=== PATIENT | female | born 1975 | race Caucasian/White ===

== ENCOUNTER → 2017-03-19 | Outpatient (CLI) | payer BC ==
[~2017-03-19] MED LIST: ASCO100061 PO; CHOL100027 PO; CLC100X PO; DOCO1CAP6 PO; MISCCAP80 PO; MTR600X PO; OREGCAP PO; PRENTAB26 PO; PRT/20 PO; [UNRECOGNIZED DRUG - CODE] PO
== END | disposition home or self-care (01) ==
LOC: C.LAB1850 13:48
PROVIDERS: ATTEND Internal Medicine
DX: R12 Heartburn (principal)

== ENCOUNTER → 2017-03-26 | Outpatient (CLI) | payer BC ==
--- NOTE | 2017-03-26 10:12 | DIAGNOSTIC IMAGING REPORT ---
(BARIUM SWALLOW) ESOPHAGUS CLINICAL HISTORY: R12 [id number] GxzwvcoocV41.1 Sensation of lump in throatRA COMPARISON STUDY: None FLUOROSCOPY TIME: 1.2 minutes. NUMBER OF FLUOROSCOPIC IMAGES: 24 FINDINGS: The patient swallowed effervescent barium in granular without difficulty. Rapid sequence swallows in the AP and lateral projections are unremarkable. No esophageal masses or ulcerations are visualized. No esophageal strictures are evident. No reflux was evident. The patient swallowed one half inch barium tablet without difficulty. IMPRESSION: Normal study Electronically signed by: Luis Duggan M.D. 03/26/2017 10:11 AM Dictated Date/Time: 03/26/2017 10:10 AM
== END | disposition home or self-care (01) ==
LOC: C.RAD 09:30
PROVIDERS: ATTEND Internal Medicine
DX: R22.1 Localized swelling, mass and lump, neck (principal); R12 Heartburn; R13.10 Dysphagia, unspecified

== ENCOUNTER → 2017-04-16 | Outpatient (CLI) | payer BC | END | disposition home or self-care (01) | LOC: C.LAB 09:16 | PROVIDERS: ATTEND Nutritionist | DX: R53.83 Other fatigue (principal) ==

== ENCOUNTER 2017-04-20 08:38 | Emergency (ER) | payer BC ==
[~2017-04-20] VITALS: Ht 165.1 cm; Wt 72.2 kg
[~2017-04-20 08:38] MED LIST changes: -ASCO100061 PO; -CHOL100027 PO; -MISCCAP80 PO; -OREGCAP PO; -PRT/20 PO; -[UNRECOGNIZED DRUG - CODE] PO
[2017-04-20 08:42] VITALS: TEMP 37; Ht 165.1 cm; Wt 72.2 kg
[2017-04-20] MEDS ORDERED: GI COCKTAIL PO STA (09:06)
[2017-04-20] MEDS ORDERED: FAMOTIDINE 20 MG TAB PO STA (09:06)
[2017-04-20] MEDS ORDERED: SUCRALFATE 1 GM TAB PO STA (09:06)
[2017-04-20 09:16] VITALS: O2SAT 97
[2017-04-20] MEDS ORDERED: ALUMINUM/MAGNESIUM SUSP 30 ML UDC ONE (09:23)
[2017-04-20] MEDS ORDERED: LIDOCAINE HCL 2% VISC SOLN 20 ML UDC ONE (09:23)
[2017-04-20 09:39] LABS: BASO % 0.7 %; BASO ABS # 0.05 K/uL (0-0.2); COMPLETE YES; EOS % 0.8 %; HEMATOCRIT 41.1 % (37-47); IG% 0.1 %; LYMPH % 22.6 %; LYMPH ABS # 1.71 K/uL (1.2-3.4); MEAN CELL VOLUME 89.2 fL (80-100); MEAN CORPUSCULAR HEMOGLOBIN 30.2 pg (25-34); MEAN CORPUSCULAR HGB CONC 33.8 g/dl (32-36); NEUT % 70.8 %; PLATELET COUNT 283 K/uL (130-400); RED BLOOD COUNT 4.61 M/uL (4.2-5.4); WHITE BLOOD COUNT 7.58 K/uL (4.8-10.8)
--- NOTE | 2017-04-20 09:50 | EMERGENCY ROOM VISIT NOTE ---
History Report prepared by Fabian: Kirsten Gonzalez Under the Supervision of: Dr. Gabino Marin M.D. First contact with patient: 08:48 Chief Complaint: BACK PAIN Stated Complaint: BURNING IN MID TO UPPER BACK History of Present Illness The patient is a 41 year old female who presents to the Emergency Room with complaints of waxing and waning upper back pain beginning early this morning. She was diaphoretic last night and woke up this morning with burning pain in her mid upper back. Her pain is alleviated with standing up and worsened when she lays flat. She rates her current pain as a 4/10 in severity. The patient has similar pain in July. She followed up with her PCP who thought it might be related to her gallbladder. Again in January she had similar pain and pain in her throat. She followed up with her PCP again who diagnosed her with reflux and placed her on medications. The patient had an unremarkable ECG at that time. She has been taking the reflux medication as prescribed, but states that it is not fully alleviating her symptoms. 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 She had a barium swallow done a few weeks ago that was normal. The patient denies chance of , rashes, and recent tick bites. Source of History: patient Onset: this morning Position: back (upper) Symptom Intensity: 4/10 Quality: burning Timing: waxes/wanes Modifying Factors (Worsening): other (laying flat) Modifying Factors (Relieving): other (standing up) Associated Symptoms: No rash Review of Systems See HPI for pertinent positives & negatives. A total of 10 systems reviewed and were otherwise negative. Past Medical & Surgical Medical Problems: (1) delivery delivered (2) Hypertension (3) Uterine scar from previous delivery affecting Family History Cancer Gallbladder disease Hypertension Kidney disease Kidney stones Social History Smoking Status: Never Smoker Smokeless Tobacco Use: No Alcohol Use: occasionally Marital Status: Housing Status: lives with family Occupation Status: employed Current/Historical Medications Scheduled Ascorbic Acid (Ascorbic Acid), 1 TAB PO DAILY Cholecalciferol (Vitamin D 1000 Unit), 1,000 INTER.UNIT PO DAILY Glutamine (l-Glutamine), 1 DOSE PO UD Oregano (Oil Of Oregano), 1 CAP PO DAILY Pantoprazole (Protonix), 20 MG PO DAILY Probiotic Product (Probiotic), 1 CAP PO DAILY Allergies Coded Allergies: NO KNOWN DRUG ALLERGIES (Verified Allergy, Unknown, NKDA, 04/20/17) Physical Exam Vital Signs Date Time Temp Pulse Resp B/P (MAP) Pulse Ox O2 Delivery O2 Flow Rate FiO2 04/20/17 10:50 73 18 135/90 99 04/20/17 09:50 67 22 120/84 99 Room Air 04/20/17 09:16 82 04/20/17 09:16 97 Room Air 04/20/17 08:42 37.0 76 20 140/83 100 Room Air Physical Exam GENERAL: Patient is a healthy-appearing well-nourished 41 year old female. HEAD: Normocephalic atraumatic EYES: Ocular movements intact pupils equal and react to light OROPHARYNX mucous membranes are moist no exudates present no erythema or edema present NECK: Supple no nuchal rigidity CHEST: Good equal expansion LUNGS: Clear and equal to auscultation CARDIAC: Normal S1 and S2 ABDOMEN: Soft nontender no guarding BACK: No CVA tenderness EXTREMITIES: No pain upon palpation normal muscle strength in all groups no clubbing cyanosis or edema NEURO: Patient is following commands and answering questions appropriately. Alert and oriented x3 Cranial Nerves 2-12 grossly intact Medical Decision & Procedures ER Provider Diagnostic Interpretation: Radiology results as stated below per my review and radiologist interpretation: Biliary ultrasound CLINICAL HISTORY: Pt c/o RU abd pain COMPARISON STUDY: No previous studies for comparison. FINDINGS: The liver appears sonographically normal. The pancreas appears sonographically normal. Multiple gallstones are visualized. There is no gallbladder wall thickening. There is no pericholecystic fluid. There is no ductal dilatation. The common bile duct measures 5 mm. There is no right-sided hydronephrosis. IMPRESSION: Cholelithiasis. Otherwise normal biliary ultrasound. No evidence of ductal dilatation. Electronically signed by: Luis Duggan M.D. 04/20/2017 10:17 AM Dictated Date/Time: 04/20/2017 10:17 AM Laboratory Results 04/20/17 09:20 Red Blood Count 4.61, Mean Corpuscular Volume 89.2, Mean Corpuscular Hemoglobin 30.2, Mean Corpuscular Hemoglobin Concent 33.8, Mean Platelet Volume 10.0, Neutrophils (%) (Auto) 70.8, Lymphocytes (%) (Auto) 22.6, Monocytes (%) (Auto) 5.0, Eosinophils (%) (Auto) 0.8, Basophils (%) (Auto) 0.7, Neutrophils # (Auto) 5.37, Lymphocytes # (Auto) 1.71, Monocytes # (Auto) 0.38, Eosinophils # (Auto) 0.06, Basophils # (Auto) 0.05 04/20/17 09:20 Test 04/20/17 09:20 White Blood Count 7.58 K/uL (4.8-10.8) Red Blood Count 4.61 M/uL (4.2-5.4) Hemoglobin 13.9 g/dL (12.0-16.0) Hematocrit 41.1 % (37-47) Mean Corpuscular Volume 89.2 fL (80-100) Mean Corpuscular Hemoglobin 30.2 pg (25-34) Mean Corpuscular Hemoglobin Concent 33.8 g/dl (32-36) Platelet Count 283 K/uL (130-400) Mean Platelet Volume 10.0 fL (7.4-10.4) Neutrophils (%) (Auto) 70.8 % Lymphocytes (%) (Auto) 22.6 % Monocytes (%) (Auto) 5.0 % Eosinophils (%) (Auto) 0.8 % Basophils (%) (Auto) 0.7 % Neutrophils # (Auto) 5.37 K/uL (1.4-6.5) Lymphocytes # (Auto) 1.71 K/uL (1.2-3.4) Monocytes # (Auto) 0.38 K/uL (0.11-0.59) Eosinophils # (Auto) 0.06 K/uL (0-0.5) Basophils # (Auto) 0.05 K/uL (0-0.2) RDW Standard Deviation 40.2 fL (36.4-46.3) RDW Coefficient of Variation 12.4 % (11.5-14.5) Immature Granulocyte % (Auto) 0.1 % Immature Granulocyte # (Auto) 0.01 K/uL (0.00-0.02) Anion Gap 6.0 mmol/L (3-11) Est Creatinine Clear Calc Drug Dose 85.6 ml/min Estimated GFR () 96.6 Estimated GFR (Non- 83.3 BUN/Creatinine Ratio 10.8 (10-20) Calcium Level 9.3 mg/dl (8.5-10.1) Total Bilirubin 0.7 mg/dl (0.2-1) Direct Bilirubin 0.2 mg/dl (0-0.2) Aspartate Amino Transf (AST/SGOT) 16 U/L (15-37) Alanine Aminotransferase (ALT/SGPT) 19 U/L (12-78) Alkaline Phosphatase 82 U/L (45-117) Total Creatine Kinase 82 U/L (26-192) Creatine Kinase MB 0.6 ng/ml (0.5-3.6) Creatine Kinase MB Ratio 0.7 (0-3.0) Troponin I < 0.015 ng/ml (0-0.045) Total Protein 8.1 gm/dl (6.4-8.2) Albumin 4.2 gm/dl (3.4-5.0) Lipase 125 U/L (73-393) Lyme Disease IgG Antibody NEG (NEG) Lyme Disease IgM Antibody NEG (NEG) Labs reviewed by ED physician. Medications Administered Medications (Trade) Dose Ordered Sig/Arias Route Start Time Stop Time Status Last Admin Dose Admin Famotidine (Pepcid Tab) 20 mg NOW STAT PO 04/20/17 09:06 04/20/17 09:09 DC 04/20/17 09:26 20 MG Sucralfate (Carafate Tab) 1 gm NOW STAT PO 04/20/17 09:06 04/20/17 09:09 DC 04/20/17 09:26 1 GM Al Hydroxide/Mg Hydroxide (Maalox Susp) 30 ml STK-MED ONCE .ROUTE 04/20/17 09:23 04/20/17 09:24 DC 04/20/17 09:26 30 ML Lidocaine HCl (Viscous Lidocaine 2% Soln) 20 ml STK-MED ONCE .ROUTE 04/20/17 09:23 04/20/17 09:24 DC 04/20/17 09:26 20 ML ECG Indication: back/shoulder pain Rate (beats per minute): 69 Rhythm: normal sinus Findings: no acute ischemic change, no ectopy ED Course 0848: Past medical records reviewed. The patient was evaluated in room A12B. A complete history and physical examination was performed. 0906: Sucralfate 1 gm PO, Pepcid 20 mg PO, GI cocktail 24 ml PO 1037: I reassessed the patient at this time. She is feeling better and resting comfortably. I discussed the results and treatment plan with the patient. I answered all pertaining questions that she had. She expressed understanding and verbalized agreement. The patient will be discharged home. Medical Decision Differential diagnosis: Etiologies such as appendicitis, diverticulitis, PUD, biliary pathology, UTI, pancreatitis, obstruction, mesenteric ischemia, aortic pathology, infections, inflammatory bowel disease, renal colic, as well as others were entertained. This is a 41-year-old female who presents emergency department complaining of abdominal pain that radiates into her back. The patient is at this point nontender and using shared medical decision-making the decision was made to ultrasound the patient's gallbladder. I will that she is afebrile here has a normal CBC normal renal profile normal liver profile normal lipase. The patient 's ultrasounds concerning for cholelithiasis. She has no evidence of cholecystitis however I suspect that this is been causing her pain intermittent pain. I strongly recommended that the patient follow-up with surgery. Patient was in agreement with the treatment plan. Medication Reconcilliation Current Medication List: was personally reviewed by me Blood Pressure Screening Patient's blood pressure: Normal blood pressure Impression Primary Impression: Cholelithiasis Scribe Attestation The scribe's documentation has been prepared under my direction and personally reviewed by me in its entirety. I confirm that the note above accurately reflects all work, treatment, procedures, and medical decision making performed by me. Departure Information Dispostion Home / Self-Care Referrals RV. Mitchell MD (PCP) Kit Osorio M.D., Christopher W., MD Forms HOME CARE DOCUMENTATION FORM, IMPORTANT VISIT INFORMATION Patient Instructions Diet Clear Liquid Dc, ED Gallstone W Biliary Colic, Gallstones, My [facility] Additional Instructions Follow up with DR Sanches's office (Cardio) Follow up with DR Osorio's office (Gallbladder) Clear liquid diet next 48 hours Take Maalox 5 ml Before every meal and at bedtime Culture results are usually available in approx 48 hours You have been examined and treated today on an emergency basis only. This is not a substitute for, or an effort to provide, complete comprehensive medical care. It is impossible to recognize and treat all injuries or illnesses in a single emergency department visit. It is therefore important that you follow up closely with Dr Lunsford. Call as soon as possible for an appointment. Thank you for your time and consideration. I look forward to speaking with you again soon. Please don't hesitate to call us if you have any questions. Problem Qualifiers Primary Impression: Cholelithiasis Cholelithiasis location: gallbladder Cholecystitis presence: without cholecystitis Biliary obstruction: without biliary obstruction Qualified Codes: K80.20 - Calculus of gallbladder without cholecystitis without obstruction
[2017-04-20 09:57] LABS: ALT/SGPT 19 U/L (12-78); BLOOD UREA NITROGEN 9 mg/dl (7-18); BUN/CREATININE RATIO 10.8 (10-20); CALCIUM 9.3 mg/dl (8.5-10.1); CARBON DIOXIDE 27 mmol/L (21-32); CHLORIDE 107 mmol/L (98-107); CREATININE 0.87 mg/dl (0.60-1.20); GLUCOSE 76 mg/dl (70-99); POTASSIUM 3.9 mmol/L (3.5-5.1); SODIUM 140 mmol/L (136-145)
[2017-04-20 10:02] LABS: ALKALINE PHOSPHATASE 82 U/L (45-117); AST/SGOT 16 U/L (15-37); CKMB/CK RATIO 0.7 (0-3.0)
[2017-04-20] MEDS ORDERED: CHOL100027 PO (10:19)
--- NOTE | 2017-04-20 10:19 | DIAGNOSTIC IMAGING REPORT ---
Biliary ultrasound CLINICAL HISTORY: Pt c/o RU abd pain COMPARISON STUDY: No previous studies for comparison. FINDINGS: The liver appears sonographically normal. The pancreas appears sonographically normal. Multiple gallstones are visualized. There is no gallbladder wall thickening. There is no pericholecystic fluid. There is no ductal dilatation. The common bile duct measures 5 mm. There is no right-sided hydronephrosis. IMPRESSION: Cholelithiasis. Otherwise normal biliary ultrasound. No evidence of ductal dilatation. Electronically signed by: Luis Duggan M.D. 04/20/2017 10:17 AM Dictated Date/Time: 04/20/2017 10:17 AM
[2017-04-20] MEDS ORDERED: OREGCAP PO (10:31)
[2017-04-20] MEDS ORDERED: PRT/20 PO (10:31)
[2017-04-20] MEDS ORDERED: [UNRECOGNIZED DRUG - CODE] PO (10:31)
[2017-04-20] MEDS ORDERED: MISCCAP80 PO (10:31)
[2017-04-20] MEDS ORDERED: ASCO100061 PO (10:31)
[2017-04-20 10:43] LABS: LYME DISEASE AB IGG NEG (NEG); LYME DISEASE AB IGM NEG (NEG)
[2017-04-20 10:50] VITALS: BP 135/90; PULSE 73; O2SAT 99
== END 2017-04-20 10:51 | disposition home or self-care (01) ==
LOC: C.EDB 08:39 → C.EDA 10:51
DX: K80.20 Calculus of gallbladder without cholecystitis without obstruction (principal); I10 Essential (primary) hypertension; Z82.49 Family history of ischemic heart disease and other diseases of the circulatory system; Z84.1 Family history of disorders of kidney and ureter

== ENCOUNTER 2023-09-29 18:26 | Observation (INO) ==
[2023-09-29] MEDS: SODIUM CHLORIDE 0.9% 1,000 ML IV STA (18:53)
[2023-09-29] MEDS: MoRPHine SULFATE 4 MG/ML 1 ML CARP\\VIAL IV PRN (18:54)
[2023-09-29] MEDS: ONDANSETRON INJ 2 MG/ML 2 ML VIAL IV STA (18:54)
--- NOTE | 2023-09-29 18:55 | Emergency Department Note ---
Impression & Plan Acute cholecystitis, Abdominal pain ED Provider Note NAME: MIGDALIA DE LEÓN AGE: 47 SEX: F : 1975 ARRIVES VIA: Walk-In INFORMANT: Patient, ED PROVIDER(S): Robert Dixon DO CHIEF COMPLAINT: Abdominal pain HPI: The patient is a 47-year-old female who presented to the emergency department for an evaluation of abdominal pain. The patient started having abdominal pain last evening around 10 PM. She started noticing abdominal distention. She did have some right upper quadrant pain as well as left lower quadrant pain. She calls it a crampy intermittent pain but she does have a constant pressure in her abdomen. She denies having any fever or vomiting. She denies having any rectal bleeding. She called her family doctor and the on-call physician told her to come the emergency department for possible appendicitis. ROS: See above HPI for pertinent positives & negatives. A total of 10 systems reviewed and were otherwise negative. PAST MEDICAL HISTORY: See Below PAST SURGICAL HISTORY: See Below FAMILY HISTORY: See Below SOCIAL HISTORY: See Below HOME MEDICATIONS: See Below ALLERGIES: See Below VITALS: See Below PHYSICAL EXAMINATION: GENERAL: Patient is awake alert in no acute distress patient is resting comfortably and showing no signs of anxiety EYES: The conjunctivae are clear. The pupils are round and reactive. EARS, NOSE, MOUTH AND THROAT: The nose is without any evidence of any deformity. NECK: The neck is nontender and supple. RESPIRATORY: Normal respiratory effort is noted there is no evidence of wheezing rhonchi or rales CARDIOVASCULAR: Regular rate and rhythm noted there no murmurs rubs or gallops normal S1 normal S2. GASTROINTESTINAL: The abdomen is distended. There is no specific guarding or rigidity. Diffuse tenderness was noted to palpation MUSCULOSKELETAL/EXTREMITIES: There is no evidence of gross deformity full range of motion is noted in the hips and shoulders. SKIN: There is no obvious evidence of any rash. There are no petechiae, pallor or cyanosis noted. NEUROLOGIC: Patient is awake alert and oriented x3 MEDICAL DECISION MAKING: The patient is a 47-year-old female who presented to the emergency department for an evaluation of abdominal pain. The patient had initially diffuse abdominal pain. The patient was treated with IV fluids and IV pain medication in the emergency department. The patient was also treated with IV antibiotics after CAT scan appear to be consistent with cholecystitis. I discussed the patient's laboratory and radiographic studies with her. She was significantly improved on reevaluation. I discussed her condition with the on-call general surgeon. The patient was evaluated by surgery in the emergency department. At their request I discussed the case with the [facility] Hospitalist. Triage Nursing notes reviewed. Prior medical records reviewed Vital Signs: reviewed and remarkable for elevated blood pressure. Differential diagnosis: Etiologies such as appendicitis, diverticulitis, obstruction, inflammatory bowel disease, renal colic, PUD, biliary pathology, pancreatitis, mesenteric ischemia, aortic pathology, infections, genitourinary, UTI, perforated viscus, as well as others were entertained. ER treatment provided: See below Diagnostics interpreted by me: ECG: EKG was obtained in the emergency department. My interpretation is sinus tachycardia [address] segment abnormalities were noted. This was compared to a tracing from April 20, 2017. There is an increase in rate otherwise no specific changes were noted. Cardiac Monitoring: An order was placed for continuous cardiac monitoring. The monitor shows a rate of 99 bpm with sinus rhythm. Laboratory studies: As stated above and show below. Imaging studies: See below. Radiographic imaging was reviewed by myself Consultation(s): I discussed this case with Dr. Brooks who is on-call for general surgery. I discussed this case with Dr. Salomon who is on-call for the [facility] hospitalist group. Past Med/Surg History Medical History Cholelithiasis delivery delivered Surgical History H/O oral surgery Family History Father Prostate cancer Grandfather (Paternal) Prostate cancer Other Breast cancer Denies family history of Ovarian cancer Myocardial infarction Colorectal cancer Social History Smoking Status: Never smoker Second Hand Exposure: No; Hx Alcohol Use: Yes Hx Substance Use: No Preferred Language: Greek Visual Impairment: No Limitations Hearing Ability: Normal marital status: Current Living Situation: Family current occupational status: employed Feels Safe at Home: Yes Childhood Exposure to Second-Hand Smoke: No Seatbelt Use: always Sunscreen Use: Yes Allergies Allergies Allergy/AdvReac Type Severity Reaction Status Date / Time No Known Drug Allergies Allergy Unknown NKDA Verified 09/27/22 14:07 Home Meds Home Medications Medication Instructions Recorded Confirmed ascorbate calcium (vitamin C) PO 09/27/22 09/27/22 zinc sulfate [Zinc-220] PO 09/27/22 09/27/22 Results & Data (ED) Vital Signs Vital Signs - 24 hr 09/29/23 18:26 09/29/23 18:53 09/29/23 18:53 Temperature 36.5 C Temperature Source Temporal Artery Scan Pulse Rate 103 H 122 H Respiratory Rate 18 Blood Pressure 149/84 H Blood Pressure Mean 105 Pulse Oximetry 100 Oxygen Delivery Method Room Air Sepsis Recent Fever Within 48 Hours No Sepsis New/Unexplained Change in Mental Status N/A Sepsis Action Taken by Nursing No Action Required 09/29/23 19:17 09/29/23 20:30 Temperature Temperature Source Pulse Rate 90 87 Respiratory Rate 18 24 Blood Pressure 140/78 145/81 H Blood Pressure Mean 98 102 Pulse Oximetry 99 99 Oxygen Delivery Method Room Air Sepsis Recent Fever Within 48 Hours Sepsis New/Unexplained Change in Mental Status Sepsis Action Taken by Half-Way Medications Current Medication List: was personally reviewed by me Laboratory Data Attestation: I reviewed the patient's lab results. 09/29/23 18:55 09/29/23 18:55 Lab Results 09/29/23 09/29/23 09/29/23 Range/Units 18:50 18:55 19:00 WBC 13.53 H (4.8-10.8) K/ul RBC 4.65 (4.20-5.40) M/uL Hgb 13.9 (12.0-16.0) g/dl POC Hgb 14.6 (12.0-16.0) g/dl Hct 40.6 (37.0-47.0) % POC Hct 43 (37-47) % MCV 87.3 (80.0-100.0) fL MCH 29.9 (25.0-34.0) pg MCHC 34.2 (32.0-36.0) g/dL RDW Std Deviation 39.6 (36.4-46.3) fL RDW Coeff of Westley 12.5 (11.5-14.5) % Plt Count 314 (130-400) K/uL MPV 10.1 (9.4-12.4) fL Immature Gran % (Auto) 0.4 % Neut % (Auto) 74.2 % Lymph % (Auto) 18.6 % Woodward % (Auto) 5.9 % Eos % (Auto) 0.5 % Baso % (Auto) 0.4 % Neut # (Auto) 10.04 H (1.40-6.50) K/uL Lymph # (Auto) 2.52 (1.20-3.40) K/uL Woodward # (Auto) 0.80 H (0.11-0.59) K/uL Eos # (Auto) 0.07 (0.00-0.50) K/uL Baso # (Auto) 0.05 (0.00-0.20) K/uL Immature Gran # (Auto) 0.05 (0.01-0.20) K/uL POC Sodium 136 (135-144) mmol/L Sodium 136 (136-145) mmol/L POC Potassium 3.7 (3.3-5.0) mmol/L Potassium 3.7 (3.5-5.1) mmol/L POC Chloride 100 L (101-112) mmol/L Chloride 100 (98-107) mmol/L Carbon Dioxide 24 (21-32) mmol/L POC Total CO2 25 (24-31) mmol/L Anion Gap 12 H (3-11) POC Anion Gap 16.0 (16-25) mmol/L POC BUN < 3 L (7-18) mg/dl BUN 5 L (6-23) mg/dl Creatinine 0.71 (0.6-1.2) mg/dl POC Creatinine 0.7 (0.6-1.3) mg/dl Est Cr Clr Drug Dosing 101.8 ml/min Est GFR ( Amer) 118.4 ml/min Est GFR (Non-Af Amer) 102.1 ml/min BUN/Creatinine Ratio 7.0 L (10-20) Glucose 105 H (70-99(Fasting)) mg/dl POC Glucose (other) 105 H (70-99) mg/dl Calcium 10.1 (8.6-10.3) mg/dl POC Ioniz Calcium Aurelia 1.13 (1.12-1.32) mmol/l Total Bilirubin 0.8 (0.2-1.0) mg/dl AST 20 (13-39) U/L ALT 18 (7-52) U/L Alkaline Phosphatase 74 (34-104) U/L Troponin I High Sens 2.8 (0-14) pg/ml Total Protein 8.0 (6.0-8.3) gm/dl Albumin 5.0 (3.4-5.0) gm/dl Globulin 3.0 (2.5-4.0) gm/dl Albumin/Globulin Ratio 1.7 (0.9-2) Lipase 10 L (11-82) U/L HCG, Qual Negative (Negative) Urine Color Yellow Urine Appearance Clear (Clear) Urine pH 5.0 (4.5-7.5) Ur Specific Holt 1.021 (1.000-1.030) Urine Protein Trace H (Negative) Urine Glucose (UA) Negative (Negative) Urine Ketones 4+ H (Negative) Urine Blood Trace H (Negative) Urine Nitrite Negative (Negative) Urine Bilirubin Negative (Negative) Urine Urobilinogen Negative (Negative) Ur Leukocyte Esterase Negative (Negative) Urine WBC (Auto) 1-5 (0-5) /hpf Urine RBC (Auto) 5-10 H (0-4) /hpf U Hyaline Cast (Auto) 1-5 (0-5) /lpf U Epithel Cells (Auto) 20-30 H (0-5) /lpf Urine Bacteria (Auto) Negative (Negative) Administered Medications Morphine Sulfate (Morphine Sulfate 4 Mg/Ml 1 Ml Carp\Vial) 4 mg IV Q15M PRN PRN Reason: Pain Stop: 10/13/23 18:43 Last Admin: 09/29/23 18:54 Dose: 4 mg Documented By: ADITYA Discontinued Medications Sodium Chloride (Nss) 1,000 mls @ 999 mls/hr IV .Q1H1M STA Stop: 09/29/23 19:44 Last Infusion: 09/29/23 20:10 Dose: Infused Documented By: Admin: 09/29/23 18:53 Dose: 999 mls/hr Documented By: ADITYA Piperacillin Sod/Tazobactam Sod (Zosyn) 4.5 gm in 100 mls @ 200 mls/hr IV NOW ONE Stop: 09/29/23 19:51 Last Infusion: 09/29/23 20:10 Dose: Infused Documented By: Admin: 09/29/23 19:31 Dose: 200 mls/hr Documented By: NETO Ioversol (Optiray 320 100ml) 93 ml IV ONCE ONE Stop: 09/29/23 19:12 Last Admin: 09/29/23 19:12 Dose: 93 ml Documented By: PACHECO Ondansetron HCl (Ondansetron Inj 2 Mg/Ml 2 Ml Vial) 4 mg IV NOW STA Stop: 09/29/23 18:45 Last Admin: 09/29/23 18:54 Dose: 4 mg Documented By: ADITYA Imaging Data Attestation: I personally reviewed and interpreted this imaging study as follows: My Impression: CT of the abdomen and pelvis was obtained in the emergency department. My interpretation is inflammation around the gallbladder with gallstones noted, final report below. Radiologist's Impression: Abdomen/Pelvis CT 09/29/23 18:44 CT OF THE ABDOMEN AND PELVIS WITH CONTRAST CLINICAL HISTORY: Upper abdominal pain. COMPARISON STUDY: Right upper quadrant ultrasound April 20, 2017. TECHNIQUE: Following IV administration of 93 mL of Optiray, axial images of the abdomen and pelvis were obtained from the lung bases to the proximal femurs. Images were reviewed in the axial, sagittal, and coronal planes. IV contrast was administered without complication. Automated exposure control was utilized for the study. A dose lowering technique was utilized adhering to the principles of ALARA. CT DOSE: 830.87 mGy.cm FINDINGS: Lung bases are unremarkable. No pneumatosis, free air or portal venous gas is present. Liver, spleen, adrenal glands, kidneys and pancreas are unremarkable. There is no biliary or pancreatic ductal dilatation. There is no peripancreatic infiltration. Gas containing foci within the gallbladder represent gallstones. The gallbladder is moderately distended with moderate gallbladder wall thickening. There is mild stranding within the morgan hepatis. There is no evidence for a bowel obstruction. A moderate amount of stool within the right colon is noted. The appendix is likely normal. Small amount of fluid within pelvis is present. A 2.1 cm ring enhancing right adnexal lesion favors a corpus luteal cyst. Major vasculature is patent. There is no lymphadenopathy. IMPRESSION: 1. Findings suggestive of acute cholecystitis. 2. No bowel obstruction. No bowel wall thickening. Moderate stool within the right colon. 3. Small amount of fluid within the pelvis. ACT 112: Negative or not required by law. Electronically signed by: Renny Lyons M.D. 09/29/2023 7:22 PM Discharge Plan Visit Data Chief Complaint: Abdominal Pain Stated Complaint: ABDOMINAL PAIN ED Provider: Robert Dixon Discharge Problem: Acute cholecystitis, Abdominal pain Patient Disposition: Being Evaluated by Hospitalist Forms Stand Alone Forms: [facility] Prescriptions Prescriptions: No Action ascorbate calcium (vitamin C) PO zinc sulfate [Zinc-220] PO Referrals Referrals: Nabila José MD [Primary Care Provider] - Discharge Problem: Abdominal pain Qualifiers: Abdominal location: generalized Qualified Code(s): R10.84 - Generalized abdominal pain
[2023-09-29 19:10] LABS: Appearance Urine Clear (Clear); Bacteria Urine Automated Negative (Negative); Bilirubin Urine Negative (Negative); Blood Urine Trace (Negative); Color Urine Yellow; Epithelial Cell Urine Auto 20-30 /lpf (0-5); Glucose Urine UA Negative (Negative); Ketones Urine 4+ (Negative); Leukocyte Esterase Urine Negative (Negative); Nitrite Urine Negative (Negative); Protein Urine Trace (Negative); Specific Gravity Urine 1.021 (1.000-1.030); Urobilinogen Urine Negative (Negative)
[2023-09-29 19:12] LABS: Basophils # (auto) 0.05 K/uL (0.00-0.20); Basophils % (auto) 0.4 %; Eosinophils # (auto) 0.07 K/uL (0.00-0.50); Eosinophils % (auto) 0.5 %; Hematocrit (blood only) 40.6 % (37.0-47.0); Hemoglobin 13.9 g/dl (12.0-16.0); Immature Granulocytes # (auto) 0.05 K/uL (0.01-0.20); Immature Granulocytes % (auto) 0.4 %; Lymphocytes # (auto) 2.52 K/uL (1.20-3.40); Lymphocytes % (auto) 18.6 %; Mean Corpuscular Hemoglobin 29.9 pg (25.0-34.0); Mean Corpuscular Hgb Conc 34.2 g/dL (32.0-36.0); Mean Corpuscular Volume 87.3 fL (80.0-100.0); Mean Platelet Volume 10.1 fL (9.4-12.4); Monocytes % (auto) 5.9 %; Neutrophils # (auto) 10.04 K/uL (1.40-6.50); Neutrophils % (auto) 74.2 %; Platelet Count 314 K/uL (130-400); RDW Coefficient of Variation 12.5 % (11.5-14.5); RDW Standard Deviation 39.6 fL (36.4-46.3); Red Blood Count 4.65 M/uL (4.20-5.40); White Blood Count 13.53 K/ul (4.8-10.8)
[2023-09-29] MEDS: OPTIRAY 320 100ml IV ONE (19:12)
[2023-09-29 19:16] LABS: iSTAT Blood Urea Nitrogen < 3 mg/dl (7-18); iSTAT Carbon Dioxide 25 mmol/L (24-31); iSTAT Chloride 100 mmol/L (101-112); iSTAT Creatinine 0.7 mg/dl (0.6-1.3); iSTAT Glucose 105 mg/dl (70-99); iSTAT Hematocrit 43 % (37-47); iSTAT Hemoglobin 14.6 g/dl (12.0-16.0); iSTAT Ionized Calcium 1.13 mmol/l (1.12-1.32); iSTAT Potassium 3.7 mmol/L (3.3-5.0); iSTAT Sodium 136 mmol/L (135-144)
[2023-09-29 19:24] LABS: Pregnancy Test, Serum Negative (Negative)
--- NOTE | 2023-09-29 19:25 | CT Scan Report ---
CT OF THE ABDOMEN AND PELVIS WITH CONTRAST CLINICAL HISTORY: Upper abdominal pain. COMPARISON STUDY: Right upper quadrant ultrasound April 20, 2017. TECHNIQUE: Following IV administration of 93 mL of Optiray, axial images of the abdomen and pelvis we re obtained from the lung bases to the proximal femurs. Images were reviewed in the axial, sagittal, and coronal planes. IV contrast was administered without complication. Automated exposure control wa s utilized for the study. A dose lowering technique was utilized adhering to the principles of ALARA . CT DOSE: 830.87 mGy.cm FINDINGS: Lung bases are unremarkable. No pneumatosis, free air or portal venous gas is present. Live r, spleen, adrenal glands, kidneys and pancreas are unremarkable. There is no biliary or pancreatic d uctal dilatation. There is no peripancreatic infiltration. Gas containing foci within the gallbladder represent gallstones. The gallbladder is moderately distended with moderate gallbladder wall thicken ing. There is mild stranding within the morgan hepatis. There is no evidence for a bowel obstruction. A moderate amount of stool within the right colon is noted. The appendix is likely normal. Small amou nt of fluid within pelvis is present. A 2.1 cm ring enhancing right adnexal lesion favors a corpus fernandez teal cyst. Major vasculature is patent. There is no lymphadenopathy. IMPRESSION: 1. Findings suggestive of acute cholecystitis. 2. No bowel obstruction. No bowel wall thickening. Moderate stool within the right colon. 3. Small amount of fluid within the pelvis. ACT 112: Negative or not required by law. Electronically signed by: Renny Lyons M.D. 09/29/2023 7:22 PM
[2023-09-29 19:26] LABS: Albumin Globulin Ratio 1.7 (0.9-2); Bilirubin,Total 0.8 mg/dl (0.2-1.0); Calcium 10.1 mg/dl (8.6-10.3); Creatinine Clr Calc Pharmacy 101.8 ml/min; Est GFR (African American) 118.4 ml/min; Est GFR (Non-African American) 102.1 ml/min; Potassium 3.7 mmol/L (3.5-5.1)
[2023-09-29] MEDS: PIPERACILLIN/TAZOBACTAM 4.5 GM/100 ML BAG IV ONE (19:31)
[2023-09-29 19:33] LABS: Troponin I High Sensitivity 2.8 pg/ml (0-14)
[2023-09-29] MEDS: SODIUM CHLORIDE 0.9% 1,000 ML IV ONE (21:23)
--- NOTE | 2023-09-29 21:35 | History & Physical Report ---
Date of Service September 29, 2023 Assessment & Plan (1) Acute cholecystitis: Plan 47-year-old woman presents with acute cholecystitis. I discussed the risk and benefits of laparoscopic cholecystectomy with her and her . We discussed postoperative course and recovery. All her questions were answered and she is agreeable to proceed. we will admit her to the hospital placed on IV fluids and IV antibiotics. She will be n.p.o. after midnight. We will plan to take her to the operating room in the morning. History of Present Illness Primary Care Provider: Nabila José MD 47-year-old woman with a history of gallstones and gallbladder attacks presents with a 22-hour history of pain in her right upper abdomen. This began yesterday evening after eating dinner. She denies nausea or vomiting. She denies fevers or chills. She denies chest pain or shortness of breath. CT scan demonstrates acute cholecystitis. White count is 14. Allergies Allergy/AdvReac Type Severity Reaction Status Date / Time No Known Drug Allergies Allergy Unknown NKDA Verified 09/29/23 21:22 Home Medications Medication Instructions Recorded Confirmed Type No Known Home Medications 09/29/23 09/29/23 History Past Med/Surg History Medical History Cholelithiasis delivery delivered Surgical History H/O oral surgery Family History Father Prostate cancer Grandfather (Paternal) Prostate cancer Other Breast cancer Denies family history of Ovarian cancer Myocardial infarction Colorectal cancer Social History Smoking Status: Never smoker Second Hand Exposure: No; Hx Alcohol Use: Yes Hx Substance Use: No Preferred Language: Welsh Visual Impairment: No Limitations Hearing Ability: Normal marital status: Current Living Situation: Family current occupational status: employed Feels Safe at Home: Yes Childhood Exposure to Second-Hand Smoke: No Seatbelt Use: always Sunscreen Use: Yes Review of Systems Review of Systems: All systems reviewed & are unremarkable except as noted in HPI & below Physical Exam Constitutional: WD/WN, vitals as above Eyes: PERRL, conjunctivae normal, anicteric sclerae Neck: trachea midline, no thyromegaly Respiratory: normal respiratory effort; no respiratory distress and no labored breathing Cardiovascular: Rate/Rhythm: regular rate and regular rhythm Gastrointestinal (Abdomen): Inspection/Auscultation: abdomen normal to inspection; abdomen not distended Percussion/Palpation: + abdomen tender ( RUQ) and abdomen soft; no guarding and abdomen not rigid Skin: no rashes, warm and dry Psychiatric: A+Ox3, euthymic affect Results & Data Results & Data Vital Signs (Past 12 Hours) Vital Signs Temp Pulse Resp BP Pulse Ox O2 Del Method 09/29/23 20:30 87 24 145/81 H 99 09/29/23 19:17 90 18 140/78 99 Room Air 09/29/23 18:53 122 H 09/29/23 18:53 Room Air 09/29/23 18:26 36.5 C 103 H 18 149/84 H 100 Laboratory Results 09/29/23 09/29/23 09/29/23 Range/Units 19:00 18:55 18:50 WBC 13.53 H (4.8-10.8) K/ul RBC 4.65 (4.20-5.40) M/uL Hgb 13.9 (12.0-16.0) g/dl POC Hgb 14.6 (12.0-16.0) g/dl Hct 40.6 (37.0-47.0) % POC Hct 43 (37-47) % MCV 87.3 (80.0-100.0) fL MCH 29.9 (25.0-34.0) pg MCHC 34.2 (32.0-36.0) g/dL RDW Std Deviation 39.6 (36.4-46.3) fL RDW Coeff of [place] 12.5 (11.5-14.5) % Plt Count 314 (130-400) K/uL MPV 10.1 (9.4-12.4) fL Immature Gran % (Auto) 0.4 % Neut % (Auto) 74.2 % Lymph % (Auto) 18.6 % [place] % (Auto) 5.9 % Eos % (Auto) 0.5 % Baso % (Auto) 0.4 % Neut # (Auto) 10.04 H (1.40-6.50) K/uL Lymph # (Auto) 2.52 (1.20-3.40) K/uL [place] # (Auto) 0.80 H (0.11-0.59) K/uL Eos # (Auto) 0.07 (0.00-0.50) K/uL Baso # (Auto) 0.05 (0.00-0.20) K/uL Immature Gran # (Auto) 0.05 (0.01-0.20) K/uL POC Sodium 136 (135-144) mmol/L Sodium 136 (136-145) mmol/L POC Potassium 3.7 (3.3-5.0) mmol/L Potassium 3.7 (3.5-5.1) mmol/L POC Chloride 100 L (101-112) mmol/L Chloride 100 (98-107) mmol/L Carbon Dioxide 24 (21-32) mmol/L POC Total CO2 25 (24-31) mmol/L Anion Gap 12 H (3-11) POC Anion Gap 16.0 (16-25) mmol/L POC BUN < 3 L (7-18) mg/dl BUN 5 L (6-23) mg/dl Creatinine 0.71 (0.6-1.2) mg/dl POC Creatinine 0.7 (0.6-1.3) mg/dl Est Cr Clr Drug Dosing 101.8 ml/min Est GFR ( Amer) 118.4 ml/min Est GFR (Non-Af Amer) 102.1 ml/min BUN/Creatinine Ratio 7.0 L (10-20) Glucose 105 H (70-99(Fasting)) mg/dl POC Glucose (other) 105 H (70-99) mg/dl Calcium 10.1 (8.6-10.3) mg/dl POC Ioniz Calcium [place] 1.13 (1.12-1.32) mmol/l Total Bilirubin 0.8 (0.2-1.0) mg/dl AST 20 (13-39) U/L ALT 18 (7-52) U/L Alkaline Phosphatase 74 (34-104) U/L Troponin I High Sens 2.8 (0-14) pg/ml Total Protein 8.0 (6.0-8.3) gm/dl Albumin 5.0 (3.4-5.0) gm/dl Globulin 3.0 (2.5-4.0) gm/dl Albumin/Globulin Ratio 1.7 (0.9-2) Lipase 10 L (11-82) U/L HCG, Qual Negative (Negative) Urine Color Yellow Urine Appearance Clear (Clear) Urine pH 5.0 (4.5-7.5) Ur Specific [place] 1.021 (1.000-1.030) Urine Protein Trace H (Negative) Urine Glucose (UA) Negative (Negative) Urine Ketones 4+ H (Negative) Urine Blood Trace H (Negative) Urine Nitrite Negative (Negative) Urine Bilirubin Negative (Negative) Urine Urobilinogen Negative (Negative) Ur Leukocyte Esterase Negative (Negative) Urine WBC (Auto) 1-5 (0-5) /hpf Urine RBC (Auto) 5-10 H (0-4) /hpf U Hyaline Cast (Auto) 1-5 (0-5) /lpf U Epithel Cells (Auto) 20-30 H (0-5) /lpf Urine Bacteria (Auto) Negative (Negative) Diagnostic Findings CT OF THE ABDOMEN AND PELVIS WITH CONTRAST CLINICAL HISTORY: Upper abdominal pain. COMPARISON STUDY: Right upper quadrant ultrasound April 20, 2017. TECHNIQUE: Following IV administration of 93 mL of Optiray, axial images of the abdomen and pelvis were obtained from the lung bases to the proximal femurs. Images were reviewed in the axial, sagittal, and coronal planes. IV contrast was administered without complication. Automated exposure control was utilized for the study. A dose lowering technique was utilized adhering to the principles of ALARA. CT DOSE: 830.87 mGy.cm FINDINGS: Lung bases are unremarkable. No pneumatosis, free air or portal venous gas is present. Liver, spleen, adrenal glands, kidneys and pancreas are unremarkable. There is no biliary or pancreatic ductal dilatation. There is no peripancreatic infiltration. Gas containing foci within the gallbladder represent gallstones. The gallbladder is moderately distended with moderate gallbladder wall thickening. There is mild stranding within the morgan hepatis. There is no evidence for a bowel obstruction. A moderate amount of stool within the right colon is noted. The appendix is likely normal. Small amount of fluid within pelvis is present. A 2.1 cm ring enhancing right adnexal lesion favors a corpus luteal cyst. Major vasculature is patent. There is no lymphadenopathy. IMPRESSION: 1. Findings suggestive of acute cholecystitis. 2. No bowel obstruction. No bowel wall thickening. Moderate stool within the right colon. 3. Small amount of fluid within the pelvis. ACT 112: Negative or not required by law. Electronically signed by: Renny Lyons M.D. 09/29/2023 7:22 PM
[2023-09-29] MEDS ORDERED: MoRPHine SULFATE 2 MG/ML CARP IV PRN (22:48)
[2023-09-29] MEDS ORDERED: diphenhydrAMINE Capsule 25 MG CAP PO PRN (22:48)
[2023-09-29] MEDS ORDERED: MoRPHine SULFATE 4 MG/ML 1 ML CARP\\VIAL IV PRN (22:48)
[2023-09-29] MEDS: LACTATED RINGER'S 1,000 ML IV SCH (23:25)
[2023-09-30] MEDS: PIPERACILLIN/TAZOBACTAM 4.5 GM in DEXTROSE 5% MINI-B 100 ML IV SCH (01:44)
[2023-09-30] MEDS: SODIUM CHLORIDE 0.9% 1,000 ML IV SCH (01:44)
--- NOTE | 2023-09-30 08:57 | Anesthesiology Consultation ---
Date of Service September 30, 2023 Assessment & Plan Chart Review Chart Review: entry level accountant initiated History Surgery Operation Date: 09/30/23 11:00 Proposed Procedures p Laparoscopic Cholecystectomy - Tucker Brooks MD Height/Weight Height: 5 ft 5 in Weight: 76.6 kg Allergies Allergy/AdvReac Type Severity Reaction Status Date / Time No Known Drug Allergies Allergy Unknown NKDA Verified 09/29/23 21:22 Medications Home Medications Medication Instructions Recorded Confirmed Last Taken No Known Home Medications 09/29/23 09/29/23 Unknown Active Medications Generic Name Dose Route Start Last Admin Trade Name Freq PRN Reason Stop Dose Admin Piperacillin Sod/Tazobactam 100 mls @ 25 mls/hr 09/30/23 02:00 09/30/23 05:56 Sod 4.5 gm/ Dextrose IV 10/10/23 01:59 Infused Q8H ANKUSH Infusion Protocol Sodium Chloride 1,000 mls @ 75 mls/hr 09/30/23 00:45 09/30/23 01:44 Nss IV 10/30/23 00:44 75 mls/hr .[id number] ANKUSH Administration Past Medical History Medical History Cholelithiasis delivery delivered Past Family History Family History Father Prostate cancer Grandfather (Paternal) Prostate cancer Other Breast cancer Denies family history of Ovarian cancer Myocardial infarction Colorectal cancer Past Surgical History Surgical History H/O oral surgery Social History Smoking Status: Never smoker Do You Dip or Chew Tobacco: No Hx Alcohol Use: Yes Alcohol type: wine alcohol intake frequency: holidays/special occasions only Hx Substance Use: No substance use type: does not use Physical Exam Vital Signs Last Vital Signs Temp 99.1 F 09/30/23 07:21 Pulse 76 09/30/23 07:21 Resp 14 09/30/23 07:21 BP 134/79 09/30/23 07:21 Pulse Ox 98 09/30/23 07:21 O2 Del Method Room Air 09/30/23 07:21 Testing Laboratory Results 09/29/23 18:55 09/29/23 18:55 Urine Color Yellow 09/29/23 18:50 Urine Appearance Clear (Clear) 09/29/23 18:50 Urine pH 5.0 (4.5-7.5) 09/29/23 18:50 Ur Specific [place] 1.021 (1.000-1.030) 09/29/23 18:50 Urine Protein Trace (Negative) H 09/29/23 18:50 Urine Glucose (UA) Negative (Negative) 09/29/23 18:50 Urine Ketones 4+ (Negative) H 09/29/23 18:50 Urine Nitrite Negative (Negative) 09/29/23 18:50 Ur Leukocyte Esterase Negative (Negative) 09/29/23 18:50 Urine WBC (Auto) 1-5 /hpf (0-5) 09/29/23 18:50 Urine RBC (Auto) 5-10 /hpf (0-4) H 09/29/23 18:50 U Hyaline Cast (Auto) 1-5 /lpf (0-5) 09/29/23 18:50 U Epithel Cells (Auto) 20-30 /lpf (0-5) H 09/29/23 18:50 Urine Bacteria (Auto) Negative (Negative) 09/29/23 18:50 Electrocardiogram Date: 09/29/23 Sinus tachycardia, rate [address] abnormality Abnormal ECG When compared with ECG of 20-APR-2017 09:12, Vent. rate has increased BY 38 BPM
--- NOTE | 2023-09-30 09:02 | Electrocardiogram Report ---
Test Reason : Blood Pressure : / mmHG Vent. Rate : 107 BPM Atrial Rate : 107 BPM P-R Int : 122 ms QRS Dur : 080 ms QT Int : 348 ms P-R-T Axes : 080 054 043 degrees QTc Int : 464 ms Sinus tachycardia Diffuse Minor Nonspecific ST abnormality Abnormal ECG When compared with ECG of 20-APR-2017 09:12, Vent. rate has increased BY [address] abnormality now present Confirmed by Leo Hauser ([id number]) on 09/30/2023 9:02:18 AM Referred By: REFERRED SELF Confirmed By:Leo Hauser
--- NOTE | 2023-09-30 10:27 | Surgery Progress Note ---
Date of Service September 30, 2023 Assessment & Plan (1) Acute cholecystitis: Plan 47-year-old woman presents with acute cholecystitis. again discussed laparoscopic cholecystectomy. All questions were answered and she is agreeable to proceed. Will take her to the operating room today at the earliest convenience. Admission and Anticipated Discharge Date Admission Date: September 29, 2023 Subjective Doing well this morning. Minimal pain. No fevers or chills. No nausea or vomiting. Physical Exam Physical Exam: NAD, A&O x 3 AFVSS Abdomen: Soft, minimal tenderness to palpation RUQ Results & Data Vital Signs (Past 12 Hours) Vital Signs Temp Pulse Resp BP Pulse Ox O2 Del Method 09/30/23 07:21 37.3 C 76 14 134/79 98 Room Air 09/29/23 22:50 37.2 C 85 16 145/89 H 100 Room Air 09/29/23 22:50 37.2 C 85 16 145/89 H 100 Room Air
[2023-09-30] MEDS ORDERED: ePHEDrine sulfate 50 MG/ML AMP IV PRN (11:09)
[2023-09-30] MEDS ORDERED: ATROPINE SULFATE 0.1 MG/ML 10ML SYR IV PRN (11:09)
[2023-09-30] MEDS ORDERED: fentaNYL citrate PF 100 MCG/2 ML VIAL IV PRN (11:09)
[2023-09-30] MEDS ORDERED: ONDANSETRON INJ 2 MG/ML 2 ML VIAL IV PRN (11:09)
[2023-09-30] MEDS ORDERED: fentaNYL citrate PF 100 MCG/2 ML VIAL ONE (12:07)
[2023-09-30] MEDS ORDERED: PROPOFOL IV EMULSION 10 MG/ML 20 ML VIAL IV ONE (12:23)
[2023-09-30] MEDS ORDERED: GLYCOPYRROLATE 0.2 MG/ML VIAL ONE (12:23)
[2023-09-30] MEDS ORDERED: ONDANSETRON INJ 2 MG/ML 2 ML VIAL ONE (12:23)
[2023-09-30] MEDS ORDERED: DEXAMETHASONE SOD INJ 4 MG/ML VIAL ONE (12:23)
[2023-09-30] MEDS ORDERED: ROCURONIUM BROMIDE 10 MG/ML 5 ML VIAL IV ONE (12:23)
[2023-09-30] MEDS ORDERED: SUGAMMADEX SODIUM 200 MG/2 ML VIAL IV ONE (12:23)
[2023-09-30] MEDS ORDERED: ESMOLOL HCL INJ 10 MG/ML 10ML VIAL IV ONE (12:28)
[2023-09-30] MEDS: EPINEPHrine INJ 1 MG/ML AMP ONE (13:09)
[2023-09-30] MEDS: BUPIVACAINE 0.25% PF 30 ML VIAL ONE (13:09)
--- NOTE | 2023-09-30 13:15 | Post Operative Brief Note ---
Immediate Post Op Note v1 Date of Surgery September 30, 2023 Pre & Post Diagnosis Operation Date: 09/30/23 11:00 Pre-Op Diagnosis: Acute Cholecystitis Post-Op Diagnosis: Acute Cholecystitis I identified the patient and participated in the time-out.: Yes Procedure Operation Date: 09/30/23 11:00 Actual Procedures p Laparoscopic Cholecystectomy(Not Applicable) - Tucker Brooks MD Surgeon Tucker Brooks MD B2B Outside Sales Representative None Estimated Blood Loss 5 Findings Consistent with Post-Op Diagnosis
--- NOTE | 2023-09-30 13:16 | Operative Report ---
Post Operative Report Pre & Post Diagnosis Operation Date: 09/30/23 11:00 Pre-Op Diagnosis: Acute Cholecystitis Post-Op Diagnosis: Acute Cholecystitis I identified the patient and participated in the time-out.: Yes Procedure Operation Date: 09/30/23 11:00 Actual Procedures p Laparoscopic Cholecystectomy(Not Applicable) - Tucker Brooks MD Surgeon Tucker Brooks MD Traffic Clerk None Estimated Blood Loss 5 Findings Consistent with Post-Op Diagnosis severe acute cholecystitis Specimens gallbladder Drains none Anesthesia Type General Complications no immediate complications Description of Procedure the patient was taken to the operating room, and placed supine on the operating table. A timeout was performed, perioperative antibiotics were administered, SCD boots were placed. After adequate anesthesia and analgesia was obtained, the abdomen was prepped and draped in the normal sterile fashion. Local anesthetic was injected into and around the proposed incision sites. An incision was made with a 15 blade scalpel in the supraumbilical region and carried down to the level of the fascia. The fascia was grasped with a trach hook, and a varies needle was used to enter the abdominal cavity. The abdomen was insufflated to a pressure of 15 mmHg, and a 11 mm trocar was placed in this location. A 10 mm, 30 degree laparoscope was placed into the abdominal cavity, and the abdomen was surveyed. The gallbladder was noted in the right upper quadrant, severely distended and taut, with surrounding omental inflammation. Two 5 mm trochars were placed along the right costal margin, and one 5 mm trocar was placed in the subxiphoid region under direct visualization. The gallbladder was unable to be grasped due to the severe distention. It was drained with an 18-gauge aspiration needle. Clear fluid was returned, indicating hydrops of the gallbladder. Then The gallbladder was grasped and retracted cephalad and laterally, exposing the triangle of [place]. Dissection began in the triangle with a combination of blunt dissection with the [place] dissector, and judicious use of the hook cautery. The cystic duct and cystic artery were dissected free circumferentially, and a critical view of safety was obtained. The cystic duct and cystic artery were clipped and transected, and the gallbladder was removed from the gallbladder fossa with the hook cautery. The camera was switched to a 5 mm, the gallbladder was placed in an Endo Catch bag, and removed via the supraumbilical port site. The camera was switched back to the 10 mm camera, and the abdomen was surveyed again. Hemostasis was checked and attended, and was excellent. The abdomen was copiously irrigated and suctioned free. Again hemostasis was checked and was excellent. All trochars were removed under direct visualization. The abdomen was desufflated. The fascia in the 11 mm port site was closed with a 0 Vicryl suture. The skin was closed with a running 4-0 Monocryl subcuticular stitch. Dermabond was applied. The patient tolerated the procedure without complication, and was transferred in stable condition to the PACU. All instrument, needle, and sponge counts were correct at the end of the case. I attest to the content of the Intraoperative Record and any orders documented therein. Any exceptions are noted below.
[2023-09-30] MEDS: ONDANSETRON INJ 2 MG/ML 2 ML VIAL IV PRN (13:23)
--- NOTE | 2023-09-30 13:37 | Anesthesiology Progress Note ---
Date of Service September 30, 2023 Anesthesia Post Procedure Vital Signs Vital Signs: Temp Pulse Pulse Pulse Resp BP BP 09/30/23 13:30 87 16 142/90 H 09/30/23 13:20 98.1 F 97 H 16 135/91 09/30/23 07:21 99.1 F 76 14 134/79 09/29/23 22:50 99.0 F 85 16 145/89 H 09/29/23 22:50 99.0 F 85 16 145/89 H 09/29/23 22:00 82 16 136/78 09/29/23 21:31 96 H 18 153/49 H 09/29/23 20:30 87 24 145/81 H 09/29/23 19:17 90 18 140/78 09/29/23 18:53 122 H 09/29/23 18:53 09/29/23 18:26 97.7 F 103 H 18 149/84 H Pulse Ox O2 Del Method O2 Flow Rate 09/30/23 13:30 98 Room Air 0 09/30/23 13:20 100 Oxymask 8 09/30/23 07:21 98 Room Air 09/29/23 22:50 100 Room Air 09/29/23 22:50 100 Room Air 09/29/23 22:00 99 09/29/23 21:31 98 09/29/23 20:30 99 09/29/23 19:17 99 Room Air 09/29/23 18:53 09/29/23 18:53 Room Air 09/29/23 18:26 100 Pain Intensity Abdomen: Pain Intensity: 6 Transfer of Care Handoff Completed per policy Notes Mental Status: alert / awake / arousable and participated in evaluation Patient Amnestic to Procedure: Yes Nausea / Vomiting: adequately controlled Pain: adequately controlled Airway Patency, RR, SpO2: stable & adequate BP & HR: stable & adequate Hydration State: stable & adequate Anesthetic Complications: no major complications apparent and Pt Satisfied with anesthetic care
[2023-09-30] MEDS: PROMETHAZINE HCL 12.5 MG in SODIUM CHLORIDE 0.9% 50 ML IV PRN (13:48)
[2023-09-30] MEDS ORDERED: KETOROLAC 30 MG/ML VIAL IV PRN (14:16)
[2023-09-30] MEDS ORDERED: oxyCODONE/ACETAMINOPHEN 5mg/325mg TAB PO PRN ×2 (14:16)
[2023-09-30] MEDS: SCOPOLAMINE 1 MG TDSY TD ONE (14:17)
--- NOTE | 2023-10-01 10:26 | Surgery Progress Note ---
Date of Service October 01, 2023 Assessment & Plan (1) Acute cholecystitis: Plan: POD #1 s/p laparoscopic cholecystectomy Doing well Advance diet as tolerated Discharge to home today Follow-up in clinic in 2 weeks Admission and Anticipated Discharge Date Admission Date: September 29, 2023 Subjective Doing well this morning. Minimal pain. No fevers or chills. No nausea or vomiting. Physical Exam Physical Exam: NAD, A&O x 3 AFVSS Abdomen: Soft, nontender Incisions C/D/I; Dermabond in place Results & Data Vital Signs (Past 12 Hours) Vital Signs Temp Pulse Resp BP Pulse Ox O2 Del Method 10/01/23 07:23 36.9 C 75 18 108/67 96 Room Air 10/01/23 03:01 37.1 C 92 H 20 109/65 96 Room Air 09/30/23 22:30 36.9 C 87 16 114/69 96 Room Air
--- NOTE | 2023-10-02 11:03 | Discharge Summary ---
Date of Service October 02, 2023 Admission HPI Per Admitting Provider 47-year-old woman with a history of gallstones and gallbladder attacks presents with a 22-hour history of pain in her right upper abdomen. This began yesterday evening after eating dinner. She denies nausea or vomiting. She denies fevers or chills. She denies chest pain or shortness of breath. CT scan demonstrates acute cholecystitis. White count is 14. Principal Diagnosis Acute cholecystitis Discharge Data Allergies Allergy/AdvReac Type Severity Reaction Status Date / Time No Known Drug Allergies Allergy Unknown NKDA Verified 09/29/23 21:22 Consultations 09/29/23 19:56 Consult General Surgery Stat Procedures Performed Operation Date: 09/30/23 11:00 Actual Procedures p Laparoscopic Cholecystectomy(Not Applicable) - Tucker Brooks MD Ordered Studies 09/29/23 18:44 CT abd pelvis IV con only Stat Hospital Course (1) Acute cholecystitis: Patient was taken to operating room for laparoscopic cholecystectomy by Dr. Tucker Brooks on 09/30/2023 and found to have severe acute cholecystitis. Patient tolerated procedure without difficulty and was transferred to medical/surgical floor. Diet was advanced as tolerated, pain management as needed. POD # 1 diet advanced as tolerated, afebrile, vitals stable, and pain controlled. Patient was discharged home on POD # 1 in stable condition. Total Time Total Time Spent Total Time Spent (In Minutes): 20 Discharge Plan Discharge Items Patient Disposition: Home - Self-Care Reason For Visit: ACUTE CHOLECYSTITIS Discharge Diagnosis: Acute cholecystitis Activity: Per Instructions section Lifting: No more than 10 pounds Sexual Activity: Wait until after follow-up appointment Exercise/Sports: Wait until after follow-up appointment Non-emergency contact: Primary Care Provider and Surgeon Call non-emergency contact if: you have any medication questions, your pain is worsening, your pain is concerning for you, you have a fever, your temperature is above 101, your wound has increased redness, your wound has increased drainage and your wound pain has increased Follow-up/Referrals: Nabila José MD [Primary Care Provider] - Teresita Velazco PA-C [Physician Line Haul Owner Operator] - 10/16/23 12:30 pm (arrive at 1215 bring insurance cards for office to update) Diet: Regular Addtl Attending Provider Instructions: Post-Surgical ~Discharge Instructions Activity Recommendations: - lifting limitation: (20 pounds for 2-3 weeks), - exercise/sex/sports limit: (nonstrenuous for 2 weeks), - driving or machine use limit: (none for 1 week or until pain free and no longer taking narcotic pain medication), - Shower/bathe limit: (may shower beginning tomorrow) Diet: - Resume previous diet SPECIAL CARE INSTRUCTIONS: - May shower. Let water run over area and pat dry. - Leave surgical glue on incisions. Do not pick off - Call the surgeon's office with any questions or concerns - - (ex. temperature higher than 101 degrees F, excessive bleeding or pain). MEDICATIONS: - Resume previous medications unless instructed otherwise by your surgeon. - May alternate extra strength Tylenol and Ibuprofen as needed for mild to moderate pain -650 mg Tylenol every 6 hours as needed - Ibuprofen 600 mg every 6 hours as needed, with food - Percocet 1 every 6 hours, as needed for moderate to severe pain FOLLOW UP VISIT: - If not already scheduled, please call the office to schedule a two week follow-up appointment. Office number Pending Studies at Discharge: Yes (gallbladder pathology, will be reviewed at postop visit) Stand-Alone Forms: [facility], Pain - Opioid Pain Management, Smoking Cessation Medications and DC Order Prescriptions: New oxycodone-acetaminophen [Percocet] 5-325 mg tablet 1 tab PO Q6H PRN (Reason: pain) Qty: 10 0RF Continued No Known Home Medications Discharge Orders: Discharge Order (Routine); Ordered 10/01/23 Ordered By: Tucker Brooks Admission Data Admit Date/Time: 09/29/23 21:39 Attending Provider: Tucker Brooks Admit Provider: Tucker Brooks Primary Care Provider: Nabila José V. Other Providers: Tucker Brooks Other Interventions: Discharge Summary Assessment (RN) Last Done: 10/01/23 10:36
== END 2023-10-01 11:58 | disposition home or self-care (01) ==
LOC: ED 18:26 → 3N 18:26